=== PATIENT | female | born 1940 | race Caucasian/White ===

== ENCOUNTER 2020-07-13 14:22 | Emergency (ER) | payer BC, MEDICARE, OTHER ==
[~2020-07-13] VITALS: Ht 160 cm; Wt 53.5 kg
[~2020-07-13 14:22] MED LIST: ASPI-605; DULO30CA2; METO50TA PO
--- NOTE | 2020-07-13 14:22 | NUR ---
PT [id number] HOME, R HIP PAIN AND L ANKLE PAIN S/P GLF. PT IS AAOX3, NOT IN RESPIRATORY DISTRESS, HOOKED TO RESIDENTIAL HOUSEKEEPER, KEPT RESTED AND COMFORTABLE. WILL CONTINUE TO MONITOR.
--- NOTE | 2020-07-13 14:30 | NUR ---
AT BEDSIDE FOR EVAL.
--- NOTE | 2020-07-13 14:53 | NUR ---
[employer] AT BEDSIDE FOR XRAY.
[2020-07-13] MEDS ORDERED: ACETAMINOPHEN ES 500 MG TABLET ONE (16:24)
--- NOTE | 2020-07-13 16:35 | NUR ---
called esdras hunter
[2020-07-13] MEDS ORDERED: ACETAMINOPHEN ES 500 MG TABLET PO ONE (17:00)
[2020-07-13 17:07] LABS: BASOPHILS % (AUTO) 0.7 % (0.0-2.0); EOSINOPHILS % (AUTO) 1.3 % (0.0-6.0); HEMATOCRIT 38 % (33-45); HEMOGLOBIN 12.2 g/dL (11.5-14.8); LYMPHOCYTES # (AUTO) 1.4 /CMM (0.8-4.8); LYMPHOCYTES % (AUTO) 21.3 % (20.0-44.0); MEAN CORPUSCULAR HGB CONC 32 g/dl (31.0-36.0); MEAN CORPUSCULAR VOLUME 88 fL (82-100); MONOCYTES # (AUTO) 0.4 /CMM (0.1-1.30); MONOCYTES % (AUTO) 6.1 % (2.0-12.0); NEUTROPHILS # (AUTO) 4.7 /CMM (1.8-8.9); NEUTROPHILS % (AUTO) 70.6 % (43.0-81.0); PLATELET COUNT (AUTO) 239 /CMM (150-450); RED BLOOD CELL COUNT(AUTO) 4.35 MIL/uL (4.0-5.2); WHITE BLOOD COUNT (AUTO) 6.7 K/uL (4.3-11.0)
[2020-07-13] MEDS ORDERED: POLY17PO4 PO (17:15)
[2020-07-13] MEDS ORDERED: CHOL100062 PO (17:15)
[2020-07-13] MEDS ORDERED: SENN1TAB6 PO (17:15)
[2020-07-13] MEDS ORDERED: ATOR20TA PO (17:15)
[2020-07-13] MEDS ORDERED: ONDA4TAB5 PO (17:15)
[2020-07-13] MEDS ORDERED: DABI150C PO (17:15)
[2020-07-13] MEDS ORDERED: METO25TA20 PO (17:15)
[2020-07-13] MEDS ORDERED: OMEP20CA15 PO (17:15)
[2020-07-13] MEDS ORDERED: DULO20CA PO (17:15)
[2020-07-13] MEDS ORDERED: TRAM50TA2 PO (17:15)
[2020-07-13 17:25] LABS: CALCIUM, SERUM 8.6 mg/dL (8.5-10.1); CREATININE 0.7 mg/dL (0.6-1.3); POTASSIUM 3.2 mmol/L (3.5-5.1)
--- NOTE | 2020-07-13 17:57 | NUR ---
TRANSFER INFO: PT ACCEPTED AT [facility] ER # FOR REPORT [phone] [facility] ETA [id number]
--- NOTE | 2020-07-13 17:57 | NUR ---
TRANSFER INFOR: PT ACCEPTED AT [facility] ER BY [facility] ETA [phone]
--- NOTE | 2020-07-13 17:57 | NUR ---
TRANSFER INFOR: PT ACCEPTED AT [facility] ER BY [facility] ETA [id number]
[2020-07-13 18:01] VITALS: BP 140/97
--- NOTE | 2020-07-13 18:07 | NUR ---
REPORT GIVEN TO JOSE SHERIDAN OF [facility].
--- NOTE | 2020-07-13 18:17 | NUR ---
PT IS ACCEPTED AT [facility] [phone] ETA [id number]
--- NOTE | 2020-07-13 18:21 | NUR ---
REPORT GIVEN TO JOSE STARR OF [facility].
[2020-07-13] MEDS ORDERED: IBUPROFEN 600 MG TABLET ONE (18:54)
--- NOTE | 2020-07-13 18:58 | NUR ---
REPORT GIVEN TO EMS FOR PT TRANSFER TO [facility].
== END 2020-07-13 19:00 | disposition short-term general hospital (02) ==
LOC: ER 14:33
DX: S32.591A Other specified fracture of right pubis, initial encounter for closed fracture (principal); W18.30XA Fall on same level, unspecified, initial encounter; Y92.030 Kitchen in apartment as the place of occurrence of the external cause; Z20.822 Contact with and (suspected) exposure to COVID-19; I10 Essential (primary) hypertension; M79.7 Fibromyalgia; Z88.5 Allergy status to narcotic agent; Z88.8 Allergy status to other drugs, medicaments and biological substances; Z96.653 Presence of artificial knee joint, bilateral; Z96.642 Presence of left artificial hip joint; F32.9 Major depressive disorder, single episode, unspecified; R94.31 Abnormal electrocardiogram [ECG] [EKG]
CPT/HCPCS: 36415; 71045; 73502; 73610 ×2; 80048; 85025; 85730; 87081; 87426; 93005; 99291; C9803

== ENCOUNTER 2022-10-25 08:24 | Emergency (ER) | payer OTHER ==
[~2022-10-25] VITALS: Ht 160 cm; Wt 50.8 kg
[~2022-10-25 08:24] MED LIST changes: -ASPI-605; +ATOR20TA PO; +CHOL100062 PO; +DABI150C PO; +DULO20CA PO; -DULO30CA2; +METO25TA20 PO; +OMEP20CA15 PO; +ONDA4TAB5 PO; +POLY17PO4 PO; +SENN1TAB6 PO; +TRAM50TA2 PO
[2022-10-25 09:14] LABS: BASOPHILS # (AUTO) 0.1 K/uL (0.0-0.2); BASOPHILS % (AUTO) 1.1 % (0.0-2.0); EOSINOPHILS # (AUTO) 0.1 K/uL (0.0-0.7); EOSINOPHILS % (AUTO) 1.2 % (0.0-6.0); HEMATOCRIT 47 % (33-45); HEMOGLOBIN 14.6 g/dL (11.5-14.8); LYMPHOCYTES # (AUTO) 1.4 K/uL (0.8-4.8); LYMPHOCYTES % (AUTO) 18.6 % (20.0-44.0); MEAN CORPUSCULAR HEMOGLOBIN 30 PG (26.0-33.0); MEAN CORPUSCULAR HGB CONC 31 g/dl (31.0-36.0); MEAN CORPUSCULAR VOLUME 96 fL (82-100); MONOCYTES # (AUTO) 0.4 K/uL (0.1-1.30); MONOCYTES % (AUTO) 4.8 % (2.0-12.0); NEUTROPHILS # (AUTO) 5.4 K/uL (1.8-8.9); NEUTROPHILS % (AUTO) 74.3 % (43.0-81.0); PLATELET COUNT (AUTO) 210 K/uL (150-450); RED BLOOD CELL COUNT(AUTO) 4.88 MIL/uL (4.0-5.2); RED CELL DISTRIBUTION WIDTH 14.9 % (11.5-15.0); WHITE BLOOD COUNT (AUTO) 7.3 K/uL (4.3-11.0)
[2022-10-25 10:01] LABS: CALCIUM, SERUM 9.3 mg/dL (8.5-10.1); CARBON DIOXIDE 16 mmol/L (21-32); CHLORIDE 103 mmol/L (98-107); CREATININE 0.9 mg/dL (0.6-1.3); GLUCOSE 70 mg/dL (74-106); POTASSIUM 4.2 mmol/L (3.5-5.1); SODIUM SERUM 139 mmol/L (136-145); UREA NITROGEN, BLOOD 28 mg/dL (7-18)
[2022-10-25] MEDS ORDERED: ASPIRIN EC 325 MG TABLET.DR PO ONE ×2 (12:59→13:00)
[2022-10-25 17:50] VITALS: BP 132/88; TEMP 97.9; O2SAT 100
== END 2022-10-25 17:50 | disposition short-term general hospital (02) ==
LOC: ER 08:24
DX: R06.00 Dyspnea, unspecified (principal); R77.8 Other specified abnormalities of plasma proteins; I10 Essential (primary) hypertension; M79.7 Fibromyalgia; F32.A Depression, unspecified; Z96.641 Presence of right artificial hip joint; Z96.651 Presence of right artificial knee joint; Z88.5 Allergy status to narcotic agent; Z88.8 Allergy status to other drugs, medicaments and biological substances; Z60.2 Problems related to living alone; Z79.899 Other long term (current) drug therapy; Z20.822 Contact with and (suspected) exposure to COVID-19
CPT/HCPCS: 99285; 71045; 87426; 93005 ×3; 85025; 80048; 36415; 84484 ×2; J7030; C9803

== ENCOUNTER 2022-11-17 17:23 | Emergency (ER) | payer OTHER ==
[~2022-11-17] VITALS: Ht 167.6 cm; Wt 49.9 kg
[2022-11-17] MEDS ORDERED: KETOROLAC TROMETHAMINE INJ 30 MG/ML VIAL ONE (17:52)
[2022-11-17] MEDS ORDERED: CYCLOBENZAPRINE 10 MG TABLET ONE (17:53)
[2022-11-17] MEDS ORDERED: KETOROLAC TROMETHAMINE INJ 30 MG/ML VIAL IM ONE (18:00)
[2022-11-17] MEDS ORDERED: CYCLOBENZAPRINE 10 MG TABLET PO ONE (18:00)
[2022-11-17] MEDS ORDERED: CYCL5TAB PO (19:46)
[2022-11-17 20:45] VITALS: BP 120/65; TEMP 98; O2SAT 97
== END 2022-11-17 20:45 | disposition home or self-care (01) ==
LOC: ER 17:24
DX: S16.1XXA Strain of muscle, fascia and tendon at neck level, initial encounter (principal); I10 Essential (primary) hypertension; F32.A Depression, unspecified; Z98.890 Other specified postprocedural states; Z60.2 Problems related to living alone; Z88.5 Allergy status to narcotic agent; Z88.1 Allergy status to other antibiotic agents; Z79.899 Other long term (current) drug therapy; X58.XXXA Exposure to other specified factors, initial encounter; Y93.89 Activity, other specified; Y92.89 Other specified places as the place of occurrence of the external cause; Y99.8 Other external cause status
CPT/HCPCS: 99283; 96372; J1885